=== PATIENT | male | born 1950 | race African-American/Black ===

== ENCOUNTER → 2016-07-02 | Outpatient (REF) ==
[~2016-07-02] MED LIST: ALDACTONE 25MG25 M1 PO; ALDACTONE50 MG PO; LASIX 20MG TABL20 MG PO; PRILOSEC 20MG20 MG PO
== END ==
LOC: ZLAB.WCH 10:57
DX: Z01.89 Encounter for other specified special examinations (principal)

== ENCOUNTER → 2016-07-08 | Outpatient (REF) ==
[2016-07-08 17:42] LABS: PSA-TOTAL 0.31 ng/mL (0-4)
[2016-07-08 18:41] LABS: THYROID STIMULATING HORMONE 3.85 uIU/mL (0.465-4.680)
== END ==
LOC: ZLAB.WCH 16:59
PROVIDERS: Internal Medicine
DX: Z01.89 Encounter for other specified special examinations (principal)
CPT/HCPCS: G0103

== ENCOUNTER → 2016-07-09 | Outpatient (CLI) | payer MEDICARE, BC ==
[~2016-07-09] VITALS: Ht 170.2 cm; Wt 84.1 kg
[2016-07-09 13:40] VITALS: BP 121/70; PULSE 75
[2016-07-09 15:45] VITALS: BP 124/69; PULSE 94
[2016-07-09 17:46] LABS: PERITONEAL -POLYMORPHONUCLEAR 91.8 % (0-25); PERITONEAL FLUID RBC 1000 /mm3 (0-0)
== END ==
LOC: COL.RAD 13:11
PROVIDERS: Internal Medicine Gastroenterology
DX: R18.8 Other ascites (principal)
CPT/HCPCS: 19804

== ENCOUNTER → 2016-08-06 | Outpatient (CLI) | payer MEDICARE, BC ==
[2016-08-06 12:01] LABS: CALCIUM 8.4 mg/dL (8.4-10.2); CREATININE, serum 1.15 mg/dL (0.66-1.25); POTASSIUM 3.9 mmol/L (3.4-5.0)
== END ==
LOC: COL.LAB 10:58
PROVIDERS: Internal Medicine Gastroenterology
DX: R18.8 Other ascites (principal)

== ENCOUNTER 2016-08-10 07:55 | Day surgery (SDC) | payer MEDICARE, BC ==
[2016-08-09 18:19] LABS: CALCIUM 7.9 mg/dL (8.4-10.2); CREATININE, serum 1.14 mg/dL (0.66-1.25); POTASSIUM 4.2 mmol/L (3.4-5.0)
[~2016-08-10] VITALS: Ht 170.2 cm; Wt 84.5 kg
[~2016-08-10 07:55] MED LIST changes: -ALDACTONE 25MG25 M1 PO; -PRILOSEC 20MG20 MG PO
[2016-08-10] MEDS ORDERED: ALDACTONE 25MG25 M1 PO (08:23)
[2016-08-10] MEDS ORDERED: PRILOSEC 20MG20 MG PO (08:24)
[2016-08-10 08:36] LABS: MEAN CELL VOLUME 84 fl (80.0-100.0); MEAN CORPUSCULAR HGB CONC 37 g/dl (33.0-37.0); RED BLOOD COUNT 3.28 M/mm3 (4.20-5.60); REDCELL DISTRIBUTION WIDTH-CV 19.5 % (11.5-14.5); WHITE BLOOD COUNT 3.5 K/mm3 (4.8-10.8)
[2016-08-10 08:42] VITALS: BP 107/65; PULSE 66; TEMP 97.8
[2016-08-10 08:42] LABS: HEMATOCRIT 27.4 % (42.0-52.0); HEMOGLOBIN 10.2 g/dl (13.5-18.0); MEAN CORPUSCULAR HEMOGLOBIN 31 pg (27.0-31.0); PLATELET COUNT 58 K/mm3 (130-400)
[2016-08-10 08:44] LABS: INR 2.7 (0.8-3.0)
== END 2016-08-10 11:54 | disposition home or self-care (01) ==
LOC: EUO 07:55 → COL.RAD 10:00 → EUO 11:54
PROVIDERS: Internal Medicine Gastroenterology; Radiology Diagnostic Radiology
DX: K74.60 Unspecified cirrhosis of liver (principal); Z53.09 Procedure and treatment not carried out because of other contraindication